=== PATIENT | male | born 1955 | race Two or more races ===

== ENCOUNTER 2023-09-19 16:43 | Inpatient (IN) | payer OTHER ==
[~2023-09-19] VITALS: Ht 185.4 cm; Wt 82.1 kg
[2023-09-19 18:37] LABS: Basophils # (auto) 0 10 ^3/uL (0-0.2); Basophils % (auto) 0.4 % (0.0-2.0); Eosinophils # (auto) 0.8 10 ^3/uL (0-0.8); Hematocrit 45.5 % (41.0-53.0); Hemoglobin 15.1 g/dL (13.5-17.5); Lymphocytes # (auto) 2.6 10 ^3/uL (0.4-5.4); Lymphocytes % (auto) 21.4 % (10.0-50.0); Mean Corpuscular Hemoglobin 31.8 pg (28.0-32.0); Mean Corpuscular Hgb Conc. 33.2 g/dL (32.0-36.0); Mean Corpuscular Volume 95.8 fL (80.0-100.0); Monocytes # (auto) 0.9 10 ^3/uL (0-1.3); Monocytes % (auto) 7.2 % (0.0-12.0); Neutrophils # (auto) 7.7 10 ^3/uL (1.6-8.6); Nucleated Red Blood Cells % 0.1 %; Red Blood Cells 4.75 10^6/uL (4.5-5.90)
[2023-09-19 18:50] LABS: INR 1.13 (0.9-1.15); Partial Thromboplastin Time 28.7 SEC (24.5-34.5); Prothrombin Time 11.9 sec (9.3-11.8)
[2023-09-19 19:07] LABS: Alanine Aminotransferase 20 U/L (7-40); Albumin 4.3 g/dL (3.2-4.8); Alkaline Phosphatase 105 U/L (46-116); Anion Gap 8 (5-15); Aspartate Aminotransferase 20 U/L (13-40); BUN/Creatinine Ratio 7.3 (10.0-20.0); Blood Urea Nitrogen 10 mg/dL (9-23); Calcium 10.1 mg/dL (8.7-10.4); Carbon Dioxide 23 mmol/L (20-30); Chloride 102 mmol/L (98-107); Glucose 93 mg/dL (74-106); Lipase 24 U/L (12-53); Sodium 133 mmol/L (136-145)
[2023-09-19 19:08] LABS: Bilirubin, Total 0.5 mg/dL (0.2-1.0); Total Protein 6.8 g/dL (5.7-8.2)
[2023-09-19 19:54] LABS: Lactic Acid w/Reflex 2.1 mmol/L (0.4-2.0); Potassium 5.7 mmol/L (3.5-5.1)
[2023-09-19] MEDS: ALBUTEROL SULF 2.5 MG/0.5ML(0.5%) NEB SOLN NEB ONE (20:30)
[2023-09-19] MEDS: ALBUTEROL SULF 2.5 MG/0.5ML(0.5%) NEB SOLN ONE (20:52)
[2023-09-19] MEDS ORDERED: DEXTROSE (50%) 50ML SYRG IV PRN (22:15)
[2023-09-19] MEDS ORDERED: NITROGLYCERIN 0.4 MG SL TAB SL PRN (22:15)
[2023-09-19] MEDS ORDERED: MORPHINE SULFATE INJ 2 MG/ml SYRG IV PRN (22:15)
[2023-09-19] MEDS: InsuLIN REG 1unit/0.01ml Soln (100units/ml) IV ONE (23:17)
[2023-09-19] MEDS: PIPERACILLIN-TAZOB 3.375GM 100 ML IV ONE (23:18)
[2023-09-19] MEDS: DEXTROSE (50%) 50ML SYRG IV ONE (23:18)
[2023-09-19] MEDS: METOCLOPRAMIDE HCL 5MG/ml INJ 2ml VIAL IV ONE (23:20)
[2023-09-19] MEDS: SODIUM CHLORIDE 0.9% 1,000 ML IV SCH (23:21)
[2023-09-19] MEDS: dilTIAZem 125mg/125ml BAG KIT 125 ML IV ONE (23:23)
[2023-09-20] VITALS (7 sets, daily range): BP systolic 104–125; BP diastolic 69–78; PULSE 60–102; RESP 12–20; TEMP 97.5–98.1; O2SAT 0–100
[2023-09-20] MEDS: InsuLIN REG 1unit/0.01ml Soln (100units/ml) SC SCH
[2023-09-20] MEDS: MORPHINE SULFATE INJ 2 MG/ml SYRG IV PRN (00:41)
[2023-09-20] MEDS: ACCU-CHEK COMFORT CURVE STRIP VI SCH (00:54)
[2023-09-20] MEDS: LORazepam 2MG/ML-1ML VIAL IV ONE (00:55)
[2023-09-20] MEDS: SODIUM CHLORIDE 0.9% 1,000 ML IV ONE (04:00)
[2023-09-20 06:04] LABS: Basophils # (auto) 0 10 ^3/uL (0-0.2); Basophils % (auto) 0.3 % (0.0-2.0); Eosinophils # (auto) 0.7 10 ^3/uL (0-0.8); Eosinophils % (auto) 6.1 % (0.0-7.0); Hematocrit 40.4 % (41.0-53.0); Hemoglobin 13.5 g/dL (13.5-17.5); Lymphocytes # (auto) 1.9 10 ^3/uL (0.4-5.4); Lymphocytes % (auto) 17.3 % (10.0-50.0); Mean Corpuscular Hgb Conc. 33.4 g/dL (32.0-36.0); Mean Corpuscular Volume 95.8 fL (80.0-100.0); Neutrophils # (auto) 7.3 10 ^3/uL (1.6-8.6); Neutrophils % (auto) 67.3 % (37.0-80.0); Nucleated Red Blood Cells % 0.1 %; Red Blood Cells 4.21 10^6/uL (4.5-5.90); Red Cell Distribution Width 14.1 % (11.8-14.3); White Blood Cell 10.9 10^3/uL (4.4-10.8)
[2023-09-20 06:15] LABS: Chloride 108 mmol/L (98-107); Potassium 3.8 mmol/L (3.5-5.1); Sodium 138 mmol/L (136-145)
[2023-09-20 06:16] LABS: Anion Gap 6 (5-15); Calcium 8.7 mg/dL (8.5-10.1); Carbon Dioxide 24 mmol/L (20-30)
[2023-09-20] MEDS: PIPERACILLIN-TAZOB 3.375GM 100 ML IV SCH (06:16)
[2023-09-20 06:21] LABS: BUN/Creatinine Ratio 4.3 (10.0-20.0); Blood Urea Nitrogen 5 mg/dL (9-23); Glucose 122 mg/dL (74-106)
[2023-09-20 06:23] LABS: Lactic Acid w/Reflex 2.3 mmol/L (0.4-2.0)
[2023-09-20 06:38] LABS: Urine Bacteria None Seen /hpf (None Seen)
[2023-09-20 06:44] LABS: Urine Blood Negative /uL (Negative); Urine Clarity Clear (Clear); Urine Color Light Yellow (Yellow); Urine Protein, UAD Negative (Negative); Urine Specific Gravity 1.003 (1.001-1.035); Urine Urobilinogen Normal (Negative); Urine WBC <1 /hpf (0 - 3); Urine pH 5.5 (5.0-9.0)
[2023-09-20] MEDS: SODIUM CHLORIDE 0.9% 500 ML IV ONE (06:55)
[2023-09-20] MEDS: ENOXAPARIN SOD 40 MG/0.4 ML SYRINGE SC SCH (09:39)
[2023-09-20] MEDS: DIGOXIN 0.125 MG TAB PO ONE (09:46)
[2023-09-20] MEDS ORDERED: METO-158 PO (14:50)
[2023-09-20] MEDS ORDERED: APIX5TAB PO (14:50)
[2023-09-20] MEDS: AMIODARONE BOLUS KIT 100 ML IV ONE (16:04)
[2023-09-21] VITALS (12 sets, daily range): BP systolic 101–135; BP diastolic 56–87; PULSE 60–110; RESP 16–22; TEMP 97.4–98.4; O2SAT 11–98
[2023-09-21 07:07] LABS: Basophils # (auto) 0 10 ^3/uL (0-0.2); Basophils % (auto) 0.3 % (0.0-2.0); Eosinophils # (auto) 0.7 10 ^3/uL (0-0.8); Eosinophils % (auto) 5.7 % (0.0-7.0); Hematocrit 36.9 % (41.0-53.0); Hemoglobin 12.5 g/dL (13.5-17.5); Lymphocytes # (auto) 1.5 10 ^3/uL (0.4-5.4); Lymphocytes % (auto) 12.1 % (10.0-50.0); Mean Corpuscular Hemoglobin 32.1 pg (28.0-32.0); Mean Corpuscular Volume 94.6 fL (80.0-100.0); Neutrophils % (auto) 73.9 % (37.0-80.0); Red Blood Cells 3.91 10^6/uL (4.5-5.90); Red Cell Distribution Width 13.9 % (11.8-14.3); White Blood Cell 12.1 10^3/uL (4.4-10.8)
[2023-09-21 07:12] LABS: Chloride 110 mmol/L (98-107); Potassium 4.5 mmol/L (3.5-5.1); Sodium 135 mmol/L (136-145)
[2023-09-21 07:13] LABS: Anion Gap 4 (5-15); Calcium 8.5 mg/dL (8.5-10.1); Carbon Dioxide 21 mmol/L (20-30)
[2023-09-21 07:18] LABS: Glucose 104 mg/dL (74-106)
[2023-09-21 07:23] LABS: BUN/Creatinine Ratio 4.8 (10.0-20.0); Blood Urea Nitrogen < 5 mg/dL (9-23)
[2023-09-21] MEDS: DIGOXIN (250MCG/ML) 2 ML AMPULE IV SCH (08:10)
[2023-09-21] MEDS ORDERED: HYDROmorphone HCL 2 MG/ML VL/or syr IV PRN ×2 (11:00)
[2023-09-21] MEDS ORDERED: MORPHINE SULFATE INJ 2 MG/ml SYRG IV PRN (11:00)
[2023-09-21] MEDS ORDERED: fentaNYL CITRATE 100 MCG/2 ML VL IV PRN (11:00)
[2023-09-21] MEDS ORDERED: KETAMINE 50mg/ML 1ml syringe ONE (11:01)
[2023-09-21] MEDS ORDERED: MEPERIDINE HCL (50 MG/ML) 1 ML VIAL ONE (11:01)
[2023-09-21] MEDS ORDERED: fentaNYL CITRATE 100 MCG/2 ML VL ONE (11:01)
[2023-09-21] MEDS ORDERED: MIDAZOLAM HCL 2MG/2ML 2ml VIAL (1mg/ml) ONE (11:01)
[2023-09-21] MEDS ORDERED: LIDOCAINE HCL 2% TOP JELLY 5ML TOP ONE (11:02)
[2023-09-21] MEDS ORDERED: SODIUM CHLORIDE LOCK 10 ML ONE (11:02)
[2023-09-21] MEDS ORDERED: ONDANSETRON HCL 4 MG/2 ML VIAL ONE (11:02)
[2023-09-21] MEDS ORDERED: LIDOCAINE 1% INJ PF 5ML AMP ONE (11:02)
[2023-09-21] MEDS ORDERED: GLYCOPYRROLATE 0.2 MG/ML 1ML VIAL ONE (11:02)
[2023-09-21] MEDS ORDERED: NEOSTIGMINE 1 MG/ML INJ (10mg/10ML VIAL) ONE (11:02)
[2023-09-21] MEDS ORDERED: DexAMETHasone SOD PHOS 10MG/1ML VIAL INJ ONE (11:02)
[2023-09-21] MEDS ORDERED: ROCURONIUM 10MG/ML 10ML VIAL IV ONE (11:02)
[2023-09-21] MEDS ORDERED: ETOMIDATE (2MG/ML) 20ML VIAL IV ONE (11:02)
[2023-09-21] MEDS ORDERED: SUCCINYLCHOLINE CHLORIDE 20 MG/ML 10ML VIAL IV ONE (13:37)
[2023-09-21] MEDS ORDERED: ALBUTEROL SULF 2.5 MG/0.5ML(0.5%) NEB SOLN NEB PRN (15:00)
[2023-09-21] MEDS: METOPROLOL TARTRATE 25 MG TAB PO SCH (22:02)
[2023-09-21] MEDS: ONDANSETRON HCL 4 MG/2 ML VIAL IV PRN (23:40)
[2023-09-22] VITALS (26 sets, daily range): BP systolic 92–156; BP diastolic 33–108; PULSE 73–178; RESP 12–35; TEMP 98–99.9; O2SAT 91–97
[2023-09-22 06:42] LABS: Basophils # (auto) 0 10 ^3/uL (0-0.2); Basophils % (auto) 0.1 % (0.0-2.0); Eosinophils # (auto) 0.1 10 ^3/uL (0-0.8); Eosinophils % (auto) 0.7 % (0.0-7.0); Hematocrit 39.9 % (41.0-53.0); Hemoglobin 13.5 g/dL (13.5-17.5); Lymphocytes # (auto) 0.9 10 ^3/uL (0.4-5.4); Lymphocytes % (auto) 5.2 % (10.0-50.0); Mean Corpuscular Hemoglobin 31.7 pg (28.0-32.0); Mean Corpuscular Hgb Conc. 33.8 g/dL (32.0-36.0); Monocytes # (auto) 1.3 10 ^3/uL (0-1.3); Monocytes % (auto) 7.6 % (0.0-12.0); Neutrophils # (auto) 14.9 10 ^3/uL (1.6-8.6); Neutrophils % (auto) 86.4 % (37.0-80.0); Red Blood Cells 4.25 10^6/uL (4.5-5.90); Red Cell Distribution Width 14.2 % (11.8-14.3); White Blood Cell 17.2 10^3/uL (4.4-10.8)
[2023-09-22 06:53] LABS: Chloride 105 mmol/L (98-107); Potassium 4.3 mmol/L (3.5-5.1); Sodium 134 mmol/L (136-145)
[2023-09-22 06:54] LABS: Anion Gap 6 (5-15); Carbon Dioxide 23 mmol/L (20-30)
[2023-09-22 06:55] LABS: Calcium 8.7 mg/dL (8.5-10.1)
[2023-09-22 06:59] LABS: Blood Urea Nitrogen 11 mg/dL (9-23); Glucose 122 mg/dL (74-106)
[2023-09-22] MEDS: KETOROLAC TROMETH 30 MG/ML 1ML VIAL IV ONE (09:00)
[2023-09-22] MEDS: METOCLOPRAMIDE HCL 5MG/ml INJ 2ml VIAL IV ONE (09:00)
[2023-09-22] MEDS: ceFAZolin 2 GM/D5W50ml 50 ML IV ONE (09:00)
[2023-09-22] MEDS: AMIODARONE BOLUS KIT 100 ML IV ONE (10:16)
[2023-09-22] MEDS: AMIODARONE 450mg/250ml AE 250 ML IV SCH (12:54)
[2023-09-22] MEDS: DIGOXIN (250MCG/ML) 2 ML AMPULE IV ONE (12:55)
[2023-09-22] MEDS: GASTROGRAFIN 120 ML SOL ONE (14:49)
[2023-09-22] MEDS: dilTIAZem 25 MG/5 ML VIAL IV ONE (14:52)
[2023-09-22] MEDS: PIPERACILLIN-TAZOB 3.375GM 100 ML IV SCH (15:04)
[2023-09-22] MEDS: dilTIAZem 125mg/125ml BAG KIT 125 ML IV SCH (15:53)
[2023-09-22] MEDS ORDERED: AMIODARONE 450mg/250ml AE 250 ML IV SCH (18:30)
[2023-09-23] VITALS (34 sets, daily range): BP systolic 97–152; BP diastolic 47–79; PULSE 73–123; RESP 19–31; TEMP 97.8–98.3; O2SAT 85–95
[2023-09-23 05:31] LABS: Basophils # (auto) 0 10 ^3/uL (0-0.2); Basophils % (auto) 0.1 % (0.0-2.0); Eosinophils # (auto) 0 10 ^3/uL (0-0.8); Eosinophils % (auto) 0.1 % (0.0-7.0); Hematocrit 44.8 % (41.0-53.0); Lymphocytes # (auto) 0.9 10 ^3/uL (0.4-5.4); Lymphocytes % (auto) 5.1 % (10.0-50.0); Mean Corpuscular Hemoglobin 32.1 pg (28.0-32.0); Mean Corpuscular Hgb Conc. 33.6 g/dL (32.0-36.0); Mean Corpuscular Volume 95.5 fL (80.0-100.0); Monocytes # (auto) 1.3 10 ^3/uL (0-1.3); Monocytes % (auto) 7.4 % (0.0-12.0); Neutrophils # (auto) 15.1 10 ^3/uL (1.6-8.6); Neutrophils % (auto) 87.3 % (37.0-80.0); Red Blood Cells 4.69 10^6/uL (4.5-5.90); Red Cell Distribution Width 14.5 % (11.8-14.3); White Blood Cell 17.3 10^3/uL (4.4-10.8)
[2023-09-23 05:52] LABS: Anion Gap 6 (5-15); Carbon Dioxide 22 mmol/L (20-30); Chloride 105 mmol/L (98-107); Potassium 4.3 mmol/L (3.5-5.1); Sodium 133 mmol/L (136-145)
[2023-09-23 05:58] LABS: BUN/Creatinine Ratio 9.8 (10.0-20.0); Blood Urea Nitrogen 12 mg/dL (9-23); Glucose 153 mg/dL (74-106)
[2023-09-23] MEDS: METOCLOPRAMIDE HCL 5MG/ml INJ 2ml VIAL IV PRN (09:12)
[2023-09-23] MEDS: APIXABAN 5 MG TAB PO SCH (10:38)
[2023-09-23] MEDS: ACETAMINOPHEN 325 MG TAB PO PRN (12:01)
[2023-09-23] MEDS: METOCLOPRAMIDE HCL 5MG/ml INJ 2ml VIAL IV SCH (12:30)
[2023-09-23] MEDS: LACTULOSE 20Gm/30ML SOLN PO PRN (14:08)
[2023-09-23] MEDS: PANTOPRAZOLE 40 MG/10 ML VIAL INJ IV SCH (14:08)
[2023-09-24] VITALS (34 sets, daily range): BP systolic 98–124; BP diastolic 45–71; PULSE 74–114; RESP 14–32; TEMP 97.6–98.4; O2SAT 85–100
[2023-09-24 05:58] LABS: Hemoglobin 12.9 g/dL (13.5-17.5); Mean Corpuscular Hemoglobin 31.5 pg (28.0-32.0); Mean Corpuscular Volume 95.2 fL (80.0-100.0); Red Cell Distribution Width 14.6 % (11.8-14.3); White Blood Cell 25.6 10^3/uL (4.4-10.8)
[2023-09-24 06:00] LABS: Basophils % (manual) 0 (0.0-2.0); Blast Cells 0; Eosinophils % (manual) 0 (0-7); Metamyelocytes % 0; Myelocytes % 0; Promyelocytes % 0; Reactive Lymphocytes 0
[2023-09-24 07:05] LABS: Anion Gap 7 (5-15); Carbon Dioxide 21 mmol/L (20-30); Chloride 103 mmol/L (98-107); Potassium 4.2 mmol/L (3.5-5.1); Sodium 131 mmol/L (136-145)
[2023-09-24 07:06] LABS: Calcium 8.9 mg/dL (8.5-10.1)
[2023-09-24 07:10] LABS: Glucose 135 mg/dL (74-106)
[2023-09-24 07:11] LABS: BUN/Creatinine Ratio 11.9 (10.0-20.0); Blood Urea Nitrogen 13 mg/dL (9-23); Magnesium 1.9 mg/dL (1.6-2.6)
[2023-09-24 07:18] LABS: Band Neutrophils % (manual) 3; Lymphocytes % (manual) 3 (10.0-50.0); Monocytes % (manual) 6 (0-12)
[2023-09-24 07:19] LABS: Anisocytosis Slight; Platelet Estimate Adequate
[2023-09-24] MEDS: ONDANSETRON HCL 4 MG/2 ML VIAL IV PRN (09:55)
[2023-09-24] MEDS: METOPROLOL TARTRATE 25 MG TAB PO SCH (10:00)
[2023-09-24] MEDS: IOHEXOL 300 MG/ML 100ML BOTTLE IJ ONE (11:40)
[2023-09-24] MEDS ORDERED: CLINIMIX PER PHARMACY 0 ML IV SCH (12:30)
[2023-09-24] MEDS: SOD CHL 0.45% WITH 20MEQ KCL 1,000 ML IV SCH (13:37)
[2023-09-24] MEDS: MAGNESIUM SULFATE 1GM/100ML 100 ML IV SCH (13:38)
[2023-09-24] MEDS ORDERED: DEXTROSE (50%) 50ML SYRG IV SCH (15:30)
[2023-09-24] MEDS: InsuLIN REG 1unit/0.01ml Soln (100units/ml) SC SCH (18:00)
[2023-09-24] MEDS: ACCU-CHEK COMFORT CURVE STRIP VI SCH (18:25)
[2023-09-24] MEDS ORDERED: AMINO ACID INFUSION IN D5W 2,000 ML IV NR (20:00)
[2023-09-24] MEDS: AMINO ACID INFUSION IN D5W 2,000 ML IV NR (21:55)
[2023-09-25] VITALS (56 sets, daily range): BP systolic 91–129; BP diastolic 38–67; PULSE 74–106; RESP 13–30; TEMP 97.7–98.7; O2SAT 97–100
[2023-09-25 06:33] LABS: Basophils # (auto) 0 10 ^3/uL (0-0.2); Eosinophils # (auto) 0.4 10 ^3/uL (0-0.8); Hematocrit 35.8 % (41.0-53.0); Hemoglobin 11.8 g/dL (13.5-17.5); Lymphocytes # (auto) 1.1 10 ^3/uL (0.4-5.4); Lymphocytes % (auto) 5.1 % (10.0-50.0); Mean Corpuscular Hemoglobin 31.2 pg (28.0-32.0); Mean Corpuscular Hgb Conc. 33.1 g/dL (32.0-36.0); Mean Corpuscular Volume 94.4 fL (80.0-100.0); Monocytes # (auto) 1.2 10 ^3/uL (0-1.3); Monocytes % (auto) 5.3 % (0.0-12.0); Neutrophils # (auto) 19.2 10 ^3/uL (1.6-8.6); Neutrophils % (auto) 87.6 % (37.0-80.0); Red Blood Cells 3.79 10^6/uL (4.5-5.90); Red Cell Distribution Width 14.1 % (11.8-14.3); White Blood Cell 21.9 10^3/uL (4.4-10.8)
[2023-09-25 06:54] LABS: Albumin 3.2 g/dL (3.2-4.8); Alkaline Phosphatase 89 U/L (46-116); Anion Gap 9 (5-15); Aspartate Aminotransferase 15 U/L (13-40); BUN/Creatinine Ratio 12.5 (10.0-20.0); Blood Urea Nitrogen 12 mg/dL (9-23); Calcium 8.5 mg/dL (8.5-10.1); Carbon Dioxide 22 mmol/L (20-30); Chloride 100 mmol/L (98-107); Glucose 136 mg/dL (74-106); Magnesium 2.1 mg/dL (1.6-2.6); Potassium 3.9 mmol/L (3.5-5.1); Sodium 131 mmol/L (136-145); Triglycerides 99 mg/dL (< 150)
[2023-09-25 06:55] LABS: Bilirubin, Total 0.5 mg/dL (0.2-1.0); Phosphorus 2.1 mg/dL (2.4-5.1); Total Protein 5.5 g/dL (5.7-8.2)
[2023-09-25 06:59] LABS: Alanine Aminotransferase < 9 U/L (7-40)
[2023-09-25] MEDS: CALC IV NR (20:00)
[2023-09-25] MEDS: [UNRECOGNIZED DRUG - OTHER] IV NR (20:00)
[2023-09-25] MEDS: SODIUM PHOSPHATES 24 MEQ in SODIUM CHL 0.9% 100 ML IV ONE (22:14)
[2023-09-26] VITALS (97 sets, daily range): BP systolic 100–132; BP diastolic 53–83; PULSE 75–154; RESP 13–32; TEMP 97.4–98.6; O2SAT 85–99
[2023-09-26] MEDS: PANTOPRAZOLE 40mg/50ML NS AE 50 ML IV SCH (01:00)
[2023-09-26 07:08] LABS: Albumin 2.9 g/dL (3.2-4.8); Alkaline Phosphatase 75 U/L (46-116); Anion Gap 8 (5-15); Aspartate Aminotransferase 12 U/L (13-40); BUN/Creatinine Ratio 15.8 (10.0-20.0); Bilirubin, Total 0.5 mg/dL (0.2-1.0); Blood Urea Nitrogen 12 mg/dL (9-23); Calcium 8.1 mg/dL (8.5-10.1); Carbon Dioxide 22 mmol/L (20-30); Chloride 100 mmol/L (98-107); Glucose 122 mg/dL (74-106); Magnesium 1.8 mg/dL (1.6-2.6); Phosphorus 2.3 mg/dL (2.4-5.1); Potassium 3.5 mmol/L (3.5-5.1); Sodium 130 mmol/L (136-145)
[2023-09-26 07:12] LABS: Alanine Aminotransferase < 9 U/L (7-40)
[2023-09-26] MEDS: POTASSIUM CHL 20MEQ/100ML 100 ML IV ONE (15:11)
[2023-09-26] MEDS: POTASSIUM PHOSPHATE 22 MEQ in SODIUM CHL 0.9% 100 ML IV ONE (17:36)
[2023-09-26] MEDS ORDERED: PANTOPRAZOLE 40 MG/10 ML VIAL INJ IV SCH (21:00)
[2023-09-26] MEDS: [UNRECOGNIZED DRUG - OTHER] IV NR (22:20)
[2023-09-26] MEDS: CALC IV NR (22:20)
[2023-09-26] MEDS: PANTOPRAZOLE 40 MG/10 ML VIAL INJ IV ONE (22:22)
[2023-09-26] MEDS: METOPROLOL TARTRATE 25 MG TAB PO SCH (22:26)
[2023-09-26 22:45] LABS: Basophils # (auto) 0 10 ^3/uL (0-0.2); Basophils % (auto) 0.1 % (0.0-2.0); Eosinophils # (auto) 1.1 10 ^3/uL (0-0.8); Eosinophils % (auto) 5.1 % (0.0-7.0); Hematocrit 38.4 % (41.0-53.0); Hemoglobin 12.5 g/dL (13.5-17.5); Lymphocytes # (auto) 1.1 10 ^3/uL (0.4-5.4); Lymphocytes % (auto) 5.3 % (10.0-50.0); Mean Corpuscular Hemoglobin 30.7 pg (28.0-32.0); Mean Corpuscular Hgb Conc. 32.5 g/dL (32.0-36.0); Mean Corpuscular Volume 94.4 fL (80.0-100.0); Monocytes % (auto) 9.8 % (0.0-12.0); Neutrophils # (auto) 16.7 10 ^3/uL (1.6-8.6); Neutrophils % (auto) 79.7 % (37.0-80.0); Red Blood Cells 4.07 10^6/uL (4.5-5.90); Red Cell Distribution Width 14.3 % (11.8-14.3); White Blood Cell 20.9 10^3/uL (4.4-10.8)
[2023-09-26 22:59] LABS: INR 1.18 (0.9-1.15); Prothrombin Time 12.4 sec (9.3-11.8)
[2023-09-27] VITALS (88 sets, daily range): BP systolic 102–204; BP diastolic 38–123; PULSE 58–160; RESP 17–31; TEMP 97.8–98.8; O2SAT 90–98
[2023-09-27 00:41] LABS: Basophils # (auto) 0 10 ^3/uL (0-0.2); Basophils % (auto) 0.1 % (0.0-2.0); Eosinophils # (auto) 1.1 10 ^3/uL (0-0.8); Hematocrit 39.1 % (41.0-53.0); Hemoglobin 12.8 g/dL (13.5-17.5); Lymphocytes # (auto) 1.3 10 ^3/uL (0.4-5.4); Lymphocytes % (auto) 5.6 % (10.0-50.0); Mean Corpuscular Hemoglobin 31.2 pg (28.0-32.0); Mean Corpuscular Hgb Conc. 32.7 g/dL (32.0-36.0); Mean Corpuscular Volume 95.2 fL (80.0-100.0); Monocytes # (auto) 2.2 10 ^3/uL (0-1.3); Monocytes % (auto) 9.8 % (0.0-12.0); Neutrophils % (auto) 79.5 % (37.0-80.0); Red Blood Cells 4.11 10^6/uL (4.5-5.90); Red Cell Distribution Width 14.1 % (11.8-14.3); White Blood Cell 22.7 10^3/uL (4.4-10.8)
[2023-09-27 05:20] LABS: Basophils # (auto) 0 10 ^3/uL (0-0.2); Basophils % (auto) 0.1 % (0.0-2.0); Eosinophils # (auto) 0.7 10 ^3/uL (0-0.8); Eosinophils % (auto) 3.9 % (0.0-7.0); Hematocrit 37.6 % (41.0-53.0); Hemoglobin 12.3 g/dL (13.5-17.5); Lymphocytes % (auto) 5.2 % (10.0-50.0); Mean Corpuscular Hemoglobin 31.2 pg (28.0-32.0); Mean Corpuscular Hgb Conc. 32.7 g/dL (32.0-36.0); Mean Corpuscular Volume 95.3 fL (80.0-100.0); Monocytes # (auto) 1.8 10 ^3/uL (0-1.3); Monocytes % (auto) 9.2 % (0.0-12.0); Neutrophils # (auto) 15.8 10 ^3/uL (1.6-8.6); Neutrophils % (auto) 81.6 % (37.0-80.0); Red Blood Cells 3.94 10^6/uL (4.5-5.90); Red Cell Distribution Width 14.1 % (11.8-14.3); White Blood Cell 19.3 10^3/uL (4.4-10.8)
[2023-09-27 05:42] LABS: Alanine Aminotransferase 12 U/L (7-40); Albumin 2.8 g/dL (3.2-4.8); Alkaline Phosphatase 83 U/L (46-116); Anion Gap 9 (5-15); Aspartate Aminotransferase 20 U/L (13-40); BUN/Creatinine Ratio 9.5 (10.0-20.0); Blood Urea Nitrogen 7 mg/dL (9-23); Carbon Dioxide 19 mmol/L (20-30); Chloride 101 mmol/L (98-107); Glucose 126 mg/dL (74-106); Magnesium 1.7 mg/dL (1.6-2.6); Phosphorus 2.3 mg/dL (2.4-5.1); Potassium 3.9 mmol/L (3.5-5.1); Sodium 129 mmol/L (136-145)
[2023-09-27 05:43] LABS: Bilirubin, Total 0.7 mg/dL (0.2-1.0); Total Protein 4.9 g/dL (5.7-8.2)
[2023-09-27 14:22] LABS: Hematocrit 36.4 % (41.0-53.0); Hemoglobin 12.2 g/dL (13.5-17.5); Mean Corpuscular Hemoglobin 31.5 pg (28.0-32.0); Mean Corpuscular Hgb Conc. 33.5 g/dL (32.0-36.0); Mean Corpuscular Volume 93.9 fL (80.0-100.0); Red Blood Cells 3.88 10^6/uL (4.5-5.90); Red Cell Distribution Width 14.1 % (11.8-14.3)
[2023-09-27 14:42] LABS: Basophils % (manual) 0 (0.0-2.0); Blast Cells 0; Metamyelocytes % 0; Myelocytes % 0; Promyelocytes % 0; Reactive Lymphocytes 0
[2023-09-27] MEDS: SODIUM PHOSPHATES 20 MEQ in SODIUM CHL 0.9% 100 ML IV ONE (15:46)
[2023-09-27] MEDS: DIGOXIN (250MCG/ML) 2 ML AMPULE IV ONE (17:53)
[2023-09-27 18:36] LABS: Anisocytosis Slight; Band Neutrophils % (manual) 3; Eosinophils % (manual) 3 (0-7); Large Platelets FEW; Lymphocytes % (manual) 5 (10.0-50.0); Monocytes % (manual) 10 (0-12); Platelet Estimate Adequate
[2023-09-27] MEDS ORDERED: CALC IV NR (20:00)
[2023-09-27] MEDS ORDERED: [UNRECOGNIZED DRUG - OTHER] IV NR (20:00)
[2023-09-27 20:15] LABS: Basophils # (auto) 0 10 ^3/uL (0-0.2); Basophils % (auto) 0.1 % (0.0-2.0); Eosinophils # (auto) 0.5 10 ^3/uL (0-0.8); Eosinophils % (auto) 2.5 % (0.0-7.0); Hematocrit 35.6 % (41.0-53.0); Hemoglobin 12.1 g/dL (13.5-17.5); Lymphocytes # (auto) 1.3 10 ^3/uL (0.4-5.4); Lymphocytes % (auto) 6.8 % (10.0-50.0); Mean Corpuscular Hemoglobin 31.5 pg (28.0-32.0); Mean Corpuscular Hgb Conc. 33.9 g/dL (32.0-36.0); Mean Corpuscular Volume 92.9 fL (80.0-100.0); Monocytes # (auto) 1.8 10 ^3/uL (0-1.3); Monocytes % (auto) 9.5 % (0.0-12.0); Neutrophils # (auto) 15.2 10 ^3/uL (1.6-8.6); Neutrophils % (auto) 81.1 % (37.0-80.0); Red Blood Cells 3.83 10^6/uL (4.5-5.90); White Blood Cell 18.8 10^3/uL (4.4-10.8)
[2023-09-27] MEDS: AMINO ACID INFUSION IN D5W 1,000 ML IV NR (20:38)
[2023-09-27] MEDS: PANTOPRAZOLE 40 MG/10 ML VIAL INJ IV SCH (22:18)
[2023-09-28] VITALS (91 sets, daily range): BP systolic 91–155; BP diastolic 32–81; PULSE 84–140; RESP 16–36; TEMP 98.4–99.4; O2SAT 63–96
[2023-09-28] MEDS: chlorproMAZINE HCL 25 MG/1 ML AMP IM PRN (00:34)
[2023-09-28 00:41] LABS: Hematocrit 36.7 % (41.0-53.0); Hemoglobin 12.1 g/dL (13.5-17.5); Mean Corpuscular Hemoglobin 31.1 pg (28.0-32.0); Red Blood Cells 3.91 10^6/uL (4.5-5.90); White Blood Cell 18.2 10^3/uL (4.4-10.8)
[2023-09-28 00:57] LABS: Band Neutrophils % (manual) 0; Basophils % (manual) 0 (0.0-2.0); Blast Cells 0; Metamyelocytes % 0; Promyelocytes % 0; Reactive Lymphocytes 0
[2023-09-28 05:11] LABS: Basophils # (auto) 0 10 ^3/uL (0-0.2); Basophils % (auto) 0.1 % (0.0-2.0); Eosinophils # (auto) 0.4 10 ^3/uL (0-0.8); Eosinophils % (auto) 2.3 % (0.0-7.0); Hematocrit 36.7 % (41.0-53.0); Hemoglobin 12.4 g/dL (13.5-17.5); Lymphocytes % (auto) 5.7 % (10.0-50.0); Mean Corpuscular Hemoglobin 31.6 pg (28.0-32.0); Mean Corpuscular Hgb Conc. 33.6 g/dL (32.0-36.0); Monocytes % (auto) 11.9 % (0.0-12.0); Neutrophils # (auto) 13.4 10 ^3/uL (1.6-8.6); Red Blood Cells 3.91 10^6/uL (4.5-5.90); White Blood Cell 16.8 10^3/uL (4.4-10.8)
[2023-09-28 05:26] LABS: Alanine Aminotransferase 17 U/L (7-40); Albumin 2.8 g/dL (3.2-4.8); Alkaline Phosphatase 83 U/L (46-116); Anion Gap 6 (5-15); Aspartate Aminotransferase 25 U/L (13-40); BUN/Creatinine Ratio 10.6 (10.0-20.0); Bilirubin, Total 0.5 mg/dL (0.2-1.0); Blood Urea Nitrogen 7 mg/dL (9-23); Carbon Dioxide 24 mmol/L (20-30); Chloride 100 mmol/L (98-107); Glucose 137 mg/dL (74-106); Magnesium 1.7 mg/dL (1.6-2.6); Phosphorus 2.2 mg/dL (2.4-5.1); Potassium 3.8 mmol/L (3.5-5.1); Sodium 130 mmol/L (136-145); Total Protein 4.9 g/dL (5.7-8.2)
[2023-09-28 05:45] LABS: Eosinophils % (manual) 9 (0-7); Lymphocytes % (manual) 7 (10.0-50.0); Monocytes % (manual) 5 (0-12); Myelocytes % 3; Platelet Estimate Adequate
[2023-09-28] MEDS: DIGOXIN (250MCG/ML) 2 ML AMPULE IV SCH (08:34)
[2023-09-28 12:29] LABS: Hematocrit 37.3 % (41.0-53.0); Hemoglobin 12.6 g/dL (13.5-17.5); Mean Corpuscular Hemoglobin 31.6 pg (28.0-32.0); Mean Corpuscular Hgb Conc. 33.8 g/dL (32.0-36.0); Mean Corpuscular Volume 93.5 fL (80.0-100.0); Red Blood Cells 3.99 10^6/uL (4.5-5.90); Red Cell Distribution Width 13.8 % (11.8-14.3); White Blood Cell 17.7 10^3/uL (4.4-10.8)
[2023-09-28 12:31] LABS: Basophils % (manual) 0 (0.0-2.0); Blast Cells 0; Metamyelocytes % 0; Myelocytes % 0; Promyelocytes % 0
[2023-09-28 13:03] LABS: Band Neutrophils % (manual) 1; Eosinophils % (manual) 1 (0-7); Lymphocytes % (manual) 7 (10.0-50.0); Monocytes % (manual) 6 (0-12); Platelet Estimate Adequate; Reactive Lymphocytes 3
[2023-09-28 18:58] LABS: Basophils # (auto) 0 10 ^3/uL (0-0.2); Basophils % (auto) 0.2 % (0.0-2.0); Eosinophils # (auto) 0.4 10 ^3/uL (0-0.8); Hematocrit 38.9 % (41.0-53.0); Hemoglobin 13.1 g/dL (13.5-17.5); Lymphocytes # (auto) 1.4 10 ^3/uL (0.4-5.4); Lymphocytes % (auto) 7.7 % (10.0-50.0); Mean Corpuscular Hgb Conc. 33.7 g/dL (32.0-36.0); Mean Corpuscular Volume 95.1 fL (80.0-100.0); Monocytes # (auto) 2.2 10 ^3/uL (0-1.3); Monocytes % (auto) 12.2 % (0.0-12.0); Neutrophils # (auto) 13.9 10 ^3/uL (1.6-8.6); Neutrophils % (auto) 77.9 % (37.0-80.0); Red Blood Cells 4.09 10^6/uL (4.5-5.90); Red Cell Distribution Width 14.2 % (11.8-14.3); White Blood Cell 17.9 10^3/uL (4.4-10.8)
[2023-09-28] MEDS: AMINO ACID INFUSION IN D5W 2,000 ML IV NR (20:00)
[2023-09-28] MEDS: ENOXAPARIN SOD 100 MG/1 ML SYRINGE SC SCH (21:47)
[2023-09-29] VITALS (17 sets, daily range): BP systolic 112–141; BP diastolic 32–83; PULSE 77–156; RESP 22–31; TEMP 98–98.6; O2SAT 90–95
[2023-09-29 05:48] LABS: Alanine Aminotransferase 19 U/L (7-40); Albumin 2.6 g/dL (3.2-4.8); Alkaline Phosphatase 70 U/L (46-116); Anion Gap 8 (5-15); Aspartate Aminotransferase 23 U/L (13-40); BUN/Creatinine Ratio 11.4 (10.0-20.0); Blood Urea Nitrogen 8 mg/dL (9-23); Calcium 7.9 mg/dL (8.7-10.4); Carbon Dioxide 21 mmol/L (20-30); Chloride 102 mmol/L (98-107); Glucose 125 mg/dL (74-106); Magnesium 1.7 mg/dL (1.6-2.6); Potassium 3.9 mmol/L (3.5-5.1); Sodium 131 mmol/L (136-145)
[2023-09-29 05:49] LABS: Bilirubin, Total 0.5 mg/dL (0.2-1.0); Phosphorus 2.3 mg/dL (2.4-5.1); Total Protein 4.7 g/dL (5.7-8.2)
[2023-09-29] MEDS: SODIUM PHOSPHATES 24 MEQ in SODIUM CHL 0.9% 100 ML IV ONE (11:58)
[2023-09-29 18:03] LABS: Potassium 4.2 mmol/L (3.5-5.1)
[2023-09-29 18:10] LABS: Magnesium 1.8 mg/dL (1.6-2.6)
[2023-09-29] MEDS: AMINO ACID INFUSION IN D5W 2,000 ML IV NR (19:52)
[2023-09-30] VITALS (20 sets, daily range): BP systolic 104–150; BP diastolic 31–81; PULSE 83–122; RESP 14–28; TEMP 97.6–98.8; O2SAT 91–99
[2023-09-30 05:36] LABS: Alanine Aminotransferase 21 U/L (7-40); Albumin 2.7 g/dL (3.2-4.8); Alkaline Phosphatase 73 U/L (46-116); Anion Gap 10 (5-15); Aspartate Aminotransferase 23 U/L (13-40); BUN/Creatinine Ratio 11.8 (10.0-20.0); Bilirubin, Total 0.5 mg/dL (0.2-1.0); Blood Urea Nitrogen 8 mg/dL (9-23); Calcium 8.1 mg/dL (8.7-10.4); Carbon Dioxide 21 mmol/L (20-30); Chloride 101 mmol/L (98-107); Glucose 121 mg/dL (74-106); Magnesium 1.7 mg/dL (1.6-2.6); Phosphorus 2.7 mg/dL (2.4-5.1); Sodium 132 mmol/L (136-145)
[2023-09-30 05:37] LABS: Total Protein 5.1 g/dL (5.7-8.2)
[2023-09-30] MEDS: AMINO ACID INFUSION IN D5W 2,000 ML IV NR (20:00)
[2023-10-01] VITALS (22 sets, daily range): BP systolic 106–160; BP diastolic 40–74; PULSE 78–120; RESP 10–28; TEMP 97.8–98.7; O2SAT 93–99
[2023-10-01 05:33] LABS: Potassium 4.1 mmol/L (3.5-5.1)
[2023-10-01 05:40] LABS: Magnesium 1.8 mg/dL (1.6-2.6)
[2023-10-01 05:41] LABS: Albumin 2.8 g/dL (3.2-4.8)
[2023-10-01 05:42] LABS: Phosphorus 2.8 mg/dL (2.4-5.1)
[2023-10-01 11:54] LABS: BUN/Creatinine Ratio 10.9 (10.0-20.0)
[2023-10-01] MEDS: AMINO ACID INFUSION IN D5W 2,000 ML IV NR (20:00)
[2023-10-01] MEDS ORDERED: AMINO ACID INFUSION IN D5W 1,000 ML IV NR (20:00)
[2023-10-02] VITALS (19 sets, daily range): BP systolic 98–157; BP diastolic 40–69; PULSE 77–121; RESP 16–24; TEMP 97.7–98.7; O2SAT 85–100
[2023-10-02 05:35] LABS: Alanine Aminotransferase 29 U/L (7-40); Albumin 2.7 g/dL (3.2-4.8); Alkaline Phosphatase 83 U/L (46-116); Anion Gap 9 (5-15); Aspartate Aminotransferase 30 U/L (13-40); BUN/Creatinine Ratio 10.1 (10.0-20.0); Bilirubin, Total 0.3 mg/dL (0.2-1.0); Blood Urea Nitrogen 7 mg/dL (9-23); Calcium 8.1 mg/dL (8.7-10.4); Carbon Dioxide 22 mmol/L (20-30); Chloride 101 mmol/L (98-107); Glucose 120 mg/dL (74-106); Magnesium 1.7 mg/dL (1.6-2.6); Phosphorus 3.2 mg/dL (2.4-5.1); Potassium 4.2 mmol/L (3.5-5.1); Sodium 132 mmol/L (136-145)
[2023-10-02 07:42] LABS: Basophils # (auto) 0 10 ^3/uL (0-0.2); Basophils % (auto) 0.3 % (0.0-2.0); Eosinophils # (auto) 0.5 10 ^3/uL (0-0.8); Hematocrit 33.6 % (41.0-53.0); Hemoglobin 11.4 g/dL (13.5-17.5); Lymphocytes # (auto) 1.6 10 ^3/uL (0.4-5.4); Lymphocytes % (auto) 9.5 % (10.0-50.0); Mean Corpuscular Hemoglobin 31.6 pg (28.0-32.0); Mean Corpuscular Volume 93.1 fL (80.0-100.0); Monocytes # (auto) 1.4 10 ^3/uL (0-1.3); Monocytes % (auto) 8.5 % (0.0-12.0); Neutrophils % (auto) 78.7 % (37.0-80.0); Red Cell Distribution Width 13.8 % (11.8-14.3); White Blood Cell 16.5 10^3/uL (4.4-10.8)
[2023-10-02] MEDS: dilTIAZem HCL 180MG ER CAP PO ONE (18:12)
[2023-10-02] MEDS: dilTIAZem 25 MG/5 ML VIAL IV ONE (18:12)
[2023-10-02] MEDS: AMINO ACID INFUSION IN D5W 2,000 ML IV NR (20:45)
[2023-10-02] MEDS: APIXABAN 5 MG TAB PO SCH (21:38)
[2023-10-03] VITALS (8 sets, daily range): BP systolic 123–148; BP diastolic 62–82; PULSE 56–92; RESP 17–20; TEMP 97.6–98.5; O2SAT 94–99
[2023-10-03 07:11] LABS: Alanine Aminotransferase 30 U/L (7-40); Alkaline Phosphatase 91 U/L (46-116); Anion Gap 3 (5-15); Aspartate Aminotransferase 27 U/L (13-40); BUN/Creatinine Ratio 11.1 (10.0-20.0); Bilirubin, Total 0.3 mg/dL (0.2-1.0); Blood Urea Nitrogen 8 mg/dL (9-23); Calcium 8.2 mg/dL (8.5-10.1); Carbon Dioxide 25 mmol/L (20-30); Chloride 102 mmol/L (98-107); Glucose 115 mg/dL (74-106); Magnesium 1.8 mg/dL (1.6-2.6); Phosphorus 3.2 mg/dL (2.4-5.1); Potassium 4.3 mmol/L (3.5-5.1); Sodium 130 mmol/L (136-145); Total Protein 5.4 g/dL (5.7-8.2)
[2023-10-03] MEDS: dilTIAZem HCL 180MG ER CAP PO SCH (10:02)
[2023-10-03] MEDS ORDERED: PANT40TA2 PO (15:26)
[2023-10-03] MEDS ORDERED: AMINO ACID INFUSION IN D5W 2,000 ML IV NR (20:00)
== END 2023-10-03 19:13 | disposition home health service (06) | DRG 351 ==
LOC: ER 16:43 → TELE 22:14 → WEST WING 09-20 13:19 → TELE-WESTW 09-20 17:50 → DOU IN ICU 09-22 16:04 → TELE-E-ADS 10-02 12:42
PROVIDERS: ADMIT Nurse Practitioner Family; ATTEND Internal Medicine
PROC: 0YQ60ZZ Repair Left Inguinal Region, Open Approach (ICD-10-PCS; principal; 2023-09-21 11:18)
PROC: 05HB33Z Insertion of Infusion Device into Right Basilic Vein, Percutaneous Approach (ICD-10-PCS; 2023-09-22)
PROC: B54MZZA Ultrasonography of Right Upper Extremity Veins, Guidance (ICD-10-PCS; 2023-09-22)
PROC: 0D9670Z Drainage of Stomach with Drainage Device, Via Natural or Artificial Opening (ICD-10-PCS; 2023-09-24)
DX: K40.30 Unilateral inguinal hernia, with obstruction, without gangrene, not specified as recurrent (principal); I48.20 Chronic atrial fibrillation, unspecified; K56.7 Ileus, unspecified; K91.89 Other postprocedural complications and disorders of digestive system; E87.5 Hyperkalemia; D72.829 Elevated white blood cell count, unspecified; E86.0 Dehydration; K57.30 Diverticulosis of large intestine without perforation or abscess without bleeding; I10 Essential (primary) hypertension; Y83.8 Other surgical procedures as the cause of abnormal reaction of the patient, or of later complication, without mention of misadventure at the time of the procedure; Z82.5 Family history of asthma and other chronic lower respiratory diseases; Z82.49 Family history of ischemic heart disease and other diseases of the circulatory system; Z79.01 Long term (current) use of anticoagulants; Y92.89 Other specified places as the place of occurrence of the external cause
CPT/HCPCS: 36415; 71045; 71046; 74018; 74022; 74176; 74178; 74250; 80048; 80053; 80069; 80162; 81001; 82270; 82962; 83605; 83690; 83735; 84100; 84132; 84478; 84484; 85007; 85025; 85027; 85610; 85730; 86850; 86900; 86901; 87040; 87076; 87081; 88302; 93005; 93306; 94640; 97110; 97116; 97163; 97530; C9113; G0378; J0330; J1100; J1815; J2250; J2405; J2543; J3480

== ENCOUNTER 2024-03-24 07:53 | Day surgery (SDC) | payer OTHER ==
[~2024-03-24] VITALS: Ht 185.4 cm; Wt 81.2 kg
[~2024-03-24 07:53] MED LIST: AMIO200T33 PO; APIX5TAB PO; ATOR40TA52 PO; FOLI-119 PO; METO-158 PO; MULT-1018 PO; PANT40TA2 PO
[2024-03-24] MEDS ORDERED: MIDAZOLAM HCL 2MG/2ML 2ml VIAL (1mg/ml) IV ONE (08:45)
[2024-03-24] MEDS ORDERED: LIDOCAINE VISCOUS 2% 15ML UD PO ONE (08:45)
[2024-03-24] MEDS ORDERED: diphenhdrAMINE HCL 50 MG/1 ML VL IV ONE (08:45)
[2024-03-24] MEDS ORDERED: fentaNYL CITRATE 100 MCG/2 ML VL IV ONE (08:45)
--- NOTE | 2024-03-24 09:18 | DVHOP2 ---
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 The patient was brought to the cardiac syrup machine laborer in n.p.o. state. the patient was given 15 ml of oral viscous lidocaine. the patient was placed in a left lateral decubitus position with bite block in mouth. NExt conscious sedation was administered per syrup machine laborer protocol with 1__ mg of versed and __50_ mcg of fentanyl. Next a ISABEL probe was advanced to the mid esophagus with ease and multiple planar images obtained. At the completion of the procedure , probe was removed and there were no immediate complications. FINDINGS: Left Ventricle: Normal LV size and mild to moderate dysfunction , LVEF estimated at 40% Right Ventricle: NOrmal RV size and function Left atrium: enlarged, smoke in [place] Right atrium: mild enlarged Left atrial appendage: no thrombus noted, decreased velocity on PW monitoring Aortic valve: trileaflet valve, no severe or AI Mitral Valve: structurally normal but posterior leaflet is mildy tethered , moderate mitral regurg probably posteriorly directed , no MS Tricuspid Valve: mild tricuspid regurgitaiton, no TS Pulmonic Valve: strucutrally normal, no severe PIor PS Interatrial septum: negative color flow for R to L shunt, negative bubble study Ascending aorta: no severe plaquing Next we sync'ed to 200 J and 1 shock delivered with successful baptism of Normal Sinus rhythm. I gave 50 mg of iv benadryl prior to DCCV. CONCLUSIONS: 1. Successful ISABEL guided DCCV PLAN: cont doac cont amiodarone for now cut to 1x a day cut toprol dose in half EMANUEL REYNOSO MD Mar 24, 2024 09:18
--- NOTE | 2024-03-24 15:44 | ECG ---
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
--- NOTE | 2024-04-13 12:08 | ECG ---
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
== END 2024-03-24 10:37 | disposition home or self-care (01) ==
LOC: CATH 07:53
PROVIDERS: ATTEND Internal Medicine
DX: I48.91 Unspecified atrial fibrillation (principal); I08.1 Rheumatic disorders of both mitral and tricuspid valves; I49.1 Atrial premature depolarization; I44.0 Atrioventricular block, first degree
CPT/HCPCS: 92960; 93005; 93312; J1200; J2250; J3010; J7040; 99152